=== PATIENT | female | born 1935 | race Two or more races ===

== ENCOUNTER → 2019-04-09 | Outpatient (CLI) | payer MEDICARE | END | disposition home or self-care (01) | LOC: ECT 11:47 | DX: F33.2 Major depressive disorder, recurrent severe without psychotic features (principal); I10 Essential (primary) hypertension; M19.90 Unspecified osteoarthritis, unspecified site ==

== ENCOUNTER 2019-04-11 05:54 | Outpatient (RCR) | payer MEDICARE ==
[~2019-04-11] VITALS: Ht 154.9 cm; Wt 51.3 kg
[2019-04-11] MEDS ORDERED: Succinylcholine 20mg/ml 10ml vial ONE ×2 (05:55→06:00)
[2019-04-11] MEDS ORDERED: Esmolol 100mg/10ml Inj ONE (05:55)
[2019-04-11] MEDS ORDERED: NS 500ML ONE ×2 (05:55→06:00)
[2019-04-11] MEDS ORDERED: Methohexital Sodium Syr 100mg/10ml IVP ONE (06:00)
[2019-04-11 09:23] VITALS: BP 150/82
[2019-04-11 09:35] VITALS: BP 176/83
[2019-04-11 09:40] VITALS: BP 177/78
[2019-04-11 09:45] VITALS: BP 165/72
[2019-04-11 09:50] VITALS: BP 155/75
[2019-04-13 09:06] VITALS: BP 124/64
[2019-04-13 09:20] VITALS: BP 181/79
[2019-04-13 09:25] VITALS: BP 155/72
[2019-04-13 09:30] VITALS: BP 153/72
[2019-04-13 09:35] VITALS: BP 152/72
[2019-04-16] MEDS ORDERED: Methohexital Sodium Syr 100mg/10ml IVP ONE (06:00)
[2019-04-16] MEDS ORDERED: Succinylcholine 20mg/ml 10ml vial ONE (06:00)
[2019-04-16] MEDS ORDERED: NS 500ML ONE (06:00)
[2019-04-16 09:12] VITALS: BP 125/62
[2019-04-16 09:22] VITALS: BP 158/83
[2019-04-16 09:27] VITALS: BP 159/76
[2019-04-16 09:32] VITALS: BP 142/73
[2019-04-16 09:37] VITALS: BP 148/73
[2019-04-18] MEDS ORDERED: Methohexital Sodium Syr 100mg/10ml IVP ONE (06:00)
[2019-04-18] MEDS ORDERED: NS 500ML ONE (06:00)
[2019-04-18] MEDS ORDERED: Succinylcholine 20mg/ml 10ml vial ONE (06:00)
[2019-04-18 09:00] VITALS: BP 131/74
[2019-04-18 09:15] VITALS: BP 191/90
[2019-04-18 09:20] VITALS: BP 167/78
[2019-04-18 09:25] VITALS: BP 158/67
[2019-04-18 09:30] VITALS: BP 154/68
[2019-04-20] MEDS ORDERED: NS 500ML ONE (06:00)
[2019-04-20] MEDS ORDERED: Succinylcholine 20mg/ml 10ml vial ONE (06:00)
[2019-04-20] MEDS ORDERED: Methohexital Sodium Syr 100mg/10ml IVP ONE (06:00)
[2019-04-20 09:46] VITALS: BP 141/72
[2019-04-20 09:57] VITALS: BP 186/80
[2019-04-20 10:02] VITALS: BP 162/70
[2019-04-20 10:07] VITALS: BP 153/63
[2019-04-20 10:12] VITALS: BP 151/53
[2019-04-23] MEDS ORDERED: Succinylcholine 20mg/ml 10ml vial ONE (06:00)
[2019-04-23] MEDS ORDERED: NS 500ML ONE (06:00)
[2019-04-23] MEDS ORDERED: Methohexital Sodium Syr 100mg/10ml IVP ONE (06:00)
[2019-04-23 08:45] VITALS: BP 137/77
[2019-04-23 09:00] VITALS: BP 176/84
[2019-04-23 09:05] VITALS: BP 170/70
[2019-04-23 09:10] VITALS: BP 159/56
[2019-04-23 09:15] VITALS: BP 145/53
[2019-04-25] MEDS ORDERED: Succinylcholine 20mg/ml 10ml vial ONE (09:00)
[2019-04-25] MEDS ORDERED: NS 500ML ONE (09:00)
[2019-04-25] MEDS ORDERED: Methohexital Sodium Syr 100mg/10ml IVP ONE (09:00)
[2019-04-25 09:15] VITALS: BP 122/63
[2019-04-25 09:30] VITALS: BP 152/71
[2019-04-25 09:35] VITALS: BP 155/66
[2019-04-25 09:40] VITALS: BP 150/64
[2019-04-25 09:45] VITALS: BP 144/65
== END 2019-04-28 | disposition home or self-care (01) ==
LOC: ECT 05:54
DX: F33.2 Major depressive disorder, recurrent severe without psychotic features (principal); H40.9 Unspecified glaucoma; M19.90 Unspecified osteoarthritis, unspecified site; I10 Essential (primary) hypertension; N39.0 Urinary tract infection, site not specified
CPT/HCPCS: 90870; J0330; J7040

== ENCOUNTER 2019-05-02 06:26 | Outpatient (RCR) | payer MEDICARE ==
[~2019-05-02] VITALS: Ht 154.9 cm; Wt 51.3 kg
[2019-05-02] MEDS ORDERED: Succinylcholine 20mg/ml 10ml vial ONE (06:27)
[2019-05-02] MEDS ORDERED: Methohexital Sodium Syr 100mg/10ml IVP ONE (06:27)
[2019-05-02] MEDS ORDERED: NS 500ML ONE (06:27)
[2019-05-07] MEDS ORDERED: NS 500ML ONE (06:00)
[2019-05-07] MEDS ORDERED: Succinylcholine 20mg/ml 10ml vial ONE (06:00)
[2019-05-07] MEDS ORDERED: Methohexital Sodium Syr 100mg/10ml IVP ONE (06:00)
[2019-05-07 09:38] VITALS: BP 154/85
[2019-05-07 09:51] VITALS: BP 183/83
[2019-05-07 09:56] VITALS: BP 176/83
[2019-05-07 10:01] VITALS: BP 164/79
[2019-05-07 10:06] VITALS: BP 164/70
[2019-05-28 10:03] VITALS: BP 154/71
[2019-05-28 10:16] VITALS: BP 156/75
[2019-05-28 10:21] VITALS: BP 153/71
[2019-05-28 10:26] VITALS: BP 161/68
[2019-05-28 10:31] VITALS: BP 156/54
== END 2019-05-29 | disposition home or self-care (01) ==
LOC: ECT 06:26
DX: F33.2 Major depressive disorder, recurrent severe without psychotic features (principal)
CPT/HCPCS: 90870